=== PATIENT | male | born 1990 | race Caucasian/White ===

== ENCOUNTER 2022-01-20 18:30 | Emergency (ER) | payer OTHER, SELFPAY ==
--- NOTE | ~2022-01-20 | XR_ITS ---
EXAM: XR elbow LT min 3V DATE: 01/20/2022 21:10 HISTORY: POSTERIOR LATERAL LEFT ELBOW TIGHTNESS XFEW MONTHS NO INJURY . COMPARISON: None available. FINDINGS: Normal mineralization. No fracture or dislocation. No lytic or blastic lesion. Joint space s are maintained. No erosion or periosteal change. Soft tissues within normal limits. IMPRESSION: No acute osseous finding in the left elbow. Reviewed, dictated and finalized at location K.
[2022-01-20 18:50] VITALS: BP 172/86; PULSE 76; RESP 15; TEMP 36.3; O2SAT 99
[2022-01-20 20:42] VITALS: BP 142/87; PULSE 66; RESP 18; TEMP 36.3; O2SAT 99
--- NOTE | 2022-01-20 21:27 | ED.UPPEXIN ---
HPI - Extremity Injury (Upper) General Chief Complaint: Extremity Injury, Upper Stated Complaint: L elbow pain x 1 month Time Seen by Provider: 01/20/22 20:53 History of Present Illness HPI narrative: Patient is a 31-year-old male who presents ER with left elbow pain. Ongoing over months. 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 No numbness or tingling. Denies trauma. He has tried a tennis elbow brace without improvement. He has been taking ibuprofen twice a day with only intermittent relief. Related Data Allergies Allergy/AdvReac Type Severity Reaction Status Date / Time No Known Allergies Allergy Verified 01/20/22 21:21 Review of Systems Review of Systems: All systems reviewed & are unremarkable except as noted in HPI and below Constitutional: Constitutional: Denies chills and Denies fever(s) Musculoskeletal: Musculoskeletal: Denies myalgias, Reports arthralgias, Denies joint swelling and Denies muscle cramps Integumentary/Breasts: Skin/Breast: Denies erythema and Denies rash Neurologic: Denies focal weakness and Denies numbness PMFSH Past Medical History Medical History (Updated 01/20/22 @ 22:03 by Deuce Mace MD) Healthy adult male Surgical History Surgical History (Updated 01/20/22 @ 22:03 by Deuce Mace MD) No pertinent past surgical history Family History Family History Mother Patient's mother is in good health Father Patient's father is in good health Sibling Patient's sister is in good health Patient's brother is in good health Social History Social History Smoking status: Never smoker Alcohol intake: current Gender identity (if verbalized by the patient): Male Exam Narrative: GENERAL: Well-appearing, well-nourished, and in no acute distress. HEAD: Normocephalic, atraumatic. HEART: Regular rate and rhythm. Normal peripheral pulses. EXTREMITIES: Normal range of motion. No edema. No reproducible tenderness at the lateral epicondyle. No palpable crepitus in the left elbow. SKIN: Warm, dry, no rash. NEURO: Alert and oriented x3. PSYCH: Normal mood and affect. Course Course Emergency Course: Patient informed of results. Will place on a Medrol Dosepak. Patient could potentially benefit from elbow injection. Will refer to Ortho. Vital Signs Vital signs: Vital Signs Temperature 97.3 F L 01/20/22 18:50 Pulse Rate 76 01/20/22 18:50 Respiratory Rate 15 01/20/22 18:50 Blood Pressure 172/86 H 01/20/22 18:50 Pulse Oximetry 99 01/20/22 18:50 Oxygen Delivery Room Air 01/20/22 18:50 Temperature 97.3 F L 01/20/22 20:42 Pulse Rate 66 01/20/22 20:42 Respiratory Rate 18 01/20/22 20:42 Blood Pressure 142/87 H 01/20/22 20:42 Pulse Oximetry 99 01/20/22 20:42 Oxygen Delivery Room Air 01/20/22 18:50 MDM - Extremity Injury (Upper) Imaging Data Radiologist's impression: ITS Impressions Elbow X-Ray 01/20/22 21:30 IMPRESSION: No acute osseous finding in the left elbow. Discharge Plan Discharge Clinical Impression: Epicondylitis, lateral, left Patient Disposition: Home, Self-Care Condition: Stable Instructions: Tennis Elbow (ED) Additional Instructions: Return the ER if you have cold blue hand, you have weakness of the hand and cannot carry items, you develop chest pain or shortness of breath, you have other concerns. Follow-up with orthopedic surgery to have further evaluation. Prescriptions: New methylprednisolone [Medrol (Ron)] 4 mg tablets,dose pack See Rx Instructions .ROUTE .COMPLEX Qty: 21 0RF Rx Instructions: orally per package directions No Action amoxicillin-pot clavulanate [Augm
== END 2022-01-20 22:17 | disposition home or self-care (01) ==
PROVIDERS: Emergency Provider Emergency Medicine; PCP Internal Medicine
DX: M77.12 Lateral epicondylitis, left elbow (principal)
CPT/HCPCS: 73080; 99283

== ENCOUNTER 2023-04-11 07:47 | Outpatient (CLI) | payer BC, SELFPAY ==
[2023-04-11 08:22] LABS: Hematocrit 45.9 % (42.0-52.0); Hemoglobin 15.8 g/dL (14.0-18.0); Mean Corpuscular HGB Conc 34.4 g/dl (32-36); Mean Corpuscular Volume 92.9 fl (80-100); Mean Platelet Volume 10.9 fl (7.4-10.4); Platelet Count Result 175 k/mm3 (150-375); Red Blood Count 4.94 M/mm3 (4.6-6.20); Red Cell Distribution Width 12.2 % (11.5-14.5); White Blood Count 6.9 K/mm3 (4.5-10.0)
[2023-04-11 08:35] LABS: Alanine Aminotransferase 140 U/L (6-50); Albumin Level 4.7 g/dL (3.5-5.1); Alkaline Phosphatase 47 U/L (38-126); Anion Gap 9 mmol/L (8-16); Aspartate Amino Transferase 56 U/L (17-59); Bilirubin,Total 0.6 mg/dL (0.2-1.3); Blood Urea Nitrogen 19 mg/dL (9-20); Calcium 9.4 mg/dL (8.4-10.2); Carbon Dioxide 25 mmol/L (22-30); Chloride 106 mmol/L (98-107); Cholesterol 193 mg/dL (0-200); Estimated Glomerular Filt Rate > 60; Glucose 109 mg/dL (65-110); HDL Direct 49 mg/dL; Potassium 4.4 mmol/L (3.4-5.0); Sodium 140 mmol/L (137-145); Triglycerides 111 mg/dL (<150)
[2023-04-11 08:46] LABS: LDL Cholesterol Direct 110 mg/dL
== END 2023-04-11 07:48 | disposition home or self-care (01) ==
LOC: ANHLAB 07:50
PROVIDERS: PCP Nurse Practitioner Family; Visit Provider Nurse Practitioner Family
DX: Z76.89 Persons encountering health services in other specified circumstances (principal)
CPT/HCPCS: 36415; 80053; 80061; 83036; 84443; 85027